=== PATIENT | male | born 1980 ===

== ENCOUNTER 2018-04-19 14:59 | Outpatient (CLI) | payer BC ==
--- NOTE | 2018-04-19 16:23 | ULT ---
THYROID SONOGRAM: 04/19/18 HISTORY: Neck mass. Thyromegaly. FINDINGS: Right thyroid lobe is 5.9 cm and left is 6.1 cm. There is very heterogeneous echotexture and lobulati on of each thyroid lobe. No focal mass is apparent. Isthmus is 1.0 cm. IMPRESSION: Diffuse enlargement of the very heterogeneous thyroid gland. Clinical correlation regarding other sig ns and symptoms of acute thyroiditis is required. No focal masses are apparent. POS: [facility]
== END 2018-04-19 15:00 | disposition home or self-care (01) ==
LOC: NAV ULT 14:59
PROVIDERS: ATTEND Internal Medicine
DX: E01.0 Iodine-deficiency related diffuse (endemic) goiter (principal); R93.8 Abnormal findings on diagnostic imaging of other specified body structures
CPT/HCPCS: 76536